=== PATIENT | female | born 1965 | race Two or more races ===

== ENCOUNTER → 2017-04-16 16:58 | Outpatient (CLI) | payer OTHER | END | disposition home or self-care (01) | LOC: LAB 16:58 | DX: R07.0 Pain in throat (principal); J31.0 Chronic rhinitis ==

== ENCOUNTER → 2017-05-12 | Outpatient (CLI) | payer OTHER ==
[~2017-05-12] VITALS: Ht 152.4 cm; Wt 63.0 kg
== END | disposition home or self-care (01) ==
LOC: PPHC 13:30
DX: Z00.00 Encounter for general adult medical examination without abnormal findings (principal)

== ENCOUNTER → 2017-05-13 17:44 | Outpatient (CLI) | payer OTHER ==
[~2017-05-13 17:44] MED LIST: NABUMETONE750 MG PO; TIZANIDINE HCL2 MG PO
== END | disposition home or self-care (01) ==
LOC: LAB 17:44
DX: Z00.00 Encounter for general adult medical examination without abnormal findings (principal)

== ENCOUNTER 2017-06-09 11:22 | Outpatient (CLI) | payer OTHER | END 2017-06-09 11:33 | disposition home or self-care (01) | LOC: LAB 11:22 | DX: Z00.00 Encounter for general adult medical examination without abnormal findings (principal) ==

== ENCOUNTER 2018-02-14 17:53 | Emergency (ER) | payer OTHER ==
[~2018-02-14] VITALS: Ht 154.9 cm; Wt 68.0 kg
== END 2018-02-14 23:35 | disposition home or self-care (01) ==
LOC: ER 17:53
DX: N39.0 Urinary tract infection, site not specified (principal); R10.32 Left lower quadrant pain

== ENCOUNTER 2018-02-25 13:42 | Emergency (ER) | payer OTHER ==
[~2018-02-25] VITALS: Ht 154.9 cm; Wt 68.0 kg
== END 2018-02-25 14:47 | disposition home or self-care (01) ==
LOC: ER 13:42
DX: M54.5 Low back pain (principal)

== ENCOUNTER 2019-01-13 13:20 | Emergency (ER) | payer OTHER ==
[~2019-01-13] VITALS: Ht 154.9 cm; Wt 67.1 kg
== END 2019-01-13 15:56 | disposition home or self-care (01) ==
LOC: ER 13:20
DX: H66.92 Otitis media, unspecified, left ear (principal)

== ENCOUNTER 2020-02-09 14:53 | Outpatient (CLI) | payer OTHER | END 2020-02-09 15:00 | disposition home or self-care (01) | LOC: SONOGRAMA 14:53 → MAMO-SONO 15:15 | PROVIDERS: ATTEND Otolaryngology | DX: E04.1 Nontoxic single thyroid nodule (principal) ==

== ENCOUNTER 2020-07-03 15:12 | Outpatient (CLI) | payer OTHER | END 2020-07-03 15:40 | disposition home or self-care (01) | LOC: OFIC 805 15:12 | PROVIDERS: ATTEND Otolaryngology Otology & Neurotology | DX: E04.1 Nontoxic single thyroid nodule (principal) ==